=== PATIENT | female | born 1955 | race Caucasian/White ===

== ENCOUNTER → 2020-01-20 | Outpatient (CLI) | payer BC | END | disposition home or self-care (01) | LOC: LABWHC1 14:38 | PROVIDERS: ATTEND Internal Medicine | DX: Z20.828 Contact with and (suspected) exposure to other viral communicable diseases (principal) | CPT/HCPCS: U0003; C9803 ==

== ENCOUNTER → 2020-04-20 | Outpatient (CLI) | payer BC ==
--- NOTE | 2020-04-20 10:01 | XR ---
EXAMINATION TYPE: XR chest 2V DATE OF EXAM: 04/20/2020 COMPARISON: None INDICATION: History of Covid TECHNIQUE: Frontal and lateral views of the chest are obtained. FINDINGS: The heart size is normal. The pulmonary vasculature is normal. The lungs are clear. IMPRESSION: 1. No acute pulmonary process.
== END | disposition home or self-care (01) ==
LOC: RADXRMAIN 09:27
PROVIDERS: ATTEND Internal Medicine
DX: J20.9 Acute bronchitis, unspecified (principal)
CPT/HCPCS: 71046

== ENCOUNTER → 2021-09-15 | Outpatient (CLI) | payer BC ==
--- NOTE | 2021-09-15 07:47 | CTL ---
EXAMINATION TYPE: CT Low Dose Lung DATE OF EXAM ORDERED: 09/15/2021 HISTORY: Lung cancer screening CT DLP: 83.[address] CTDI: 2.4 mGy Automated exposure control for dose reduction was used. SCREENING VISIT: Yes COMPARISON: None TECHNIQUE: Low dose computed tomography scan was performed through the chest at 1 mm thick sections a nd reconstructed images in multiple planes at 1 mm and [address] DIAGNOSTIC QUALITY: Satisfactory FINDINGS: LUNG NODULES: None. LUNGS: COPD: Severity: Mild Fibrosis: Severity: None Lymph nodes: None Other findings: Mild atelectasis changes within the medial aspect of the middle lobe and the lingula. There is streaky atelectasis/scarring within the lung bases RIGHT PLEURAL SPACE: Effusion: None Calcification: None Thickening: None Pneumothorax: None LEFT PLEURAL SPACE: Effusion: None Calcification: None Thickening: None Pneumothorax: None HEART: Heart Size: Normal Coronary Calcification: Minimal Pericardial Effusion: None OTHER FINDINGS: Upper abdomen: None Bony thorax: Multilevel disc degeneration throughout the spine. Supraclavicular region: None Other: None IMPRESSION: No pulmonary nodules. CT LUNG RAD AND CT CHEST RECOMMENDATION: Lung-Rad 1 Negative: Continue annual screening with LDCT in 12 months. S Modifier (other clinically significant findings): None
== END | disposition home or self-care (01) ==
LOC: RADCTMAIN 06:18
PROVIDERS: ATTEND Internal Medicine
DX: Z12.2 Encounter for screening for malignant neoplasm of respiratory organs (principal); Z87.891 Personal history of nicotine dependence
CPT/HCPCS: 71271

== ENCOUNTER 2024-02-13 16:01 | Observation (INO) | payer BC, MEDICARE ==
[2024-02-13] MEDS: SODIUM CHLORIDE 0.9% 1,000 ML IV STA (17:16)
[2024-02-13] MEDS: KETOROLAC 15 MG/ML 1 ML VIAL IVP STA (17:17)
[2024-02-13] MEDS: ONDANSETRON 4 MG/2 ML VIAL IVP STA (17:18)
[2024-02-13 17:20] LABS: Basophils % (A) 0 %; Eosinophils # (A) 0.7 k/uL (0-0.7); Eosinophils % (A) 5 %; HCT 45.1 % (34.0-46.0); HGB 14.7 gm/dL (11.4-16.0); Lymphocytes # (A) 2.3 k/uL (1.0-4.8); Lymphocytes % (A) 18 %; MCH 32.2 pg (25.0-35.0); MCHC 32.7 g/dL (31.0-37.0); MCV 98.5 fL (80.0-100.0); Mean Platelet Volume 7.1; Monocytes # (A) 0.4 k/uL (0-1.0); Monocytes % (A) 3 %; Neutrophils # (A) 9.5 k/uL (1.3-7.7); Neutrophils % (A) 72 %; Platelet Count 316 k/uL (150-450); RBC 4.57 m/uL (3.80-5.40); RDW 12.3 % (11.5-15.5); WBC 13.1 k/uL (3.8-10.6)
[2024-02-13] MEDS: PANTOPRAZOLE 40 MG/10 ML VIAL IVP STA (17:21)
[2024-02-13 17:29] LABS: INR 1.1 (<1.2); Partial Thromboplastin Time 26.4 sec (22.0-30.0)
[2024-02-13 17:31] LABS: ALT 14 U/L (4-34); AST 22 U/L (14-36); African American GFR (CKD) >90 (>60 ml/min/1.73 sqM); Albumin 4.4 g/dL (3.5-5.0); Alkaline Phosphatase 106 U/L (38-126); Amylase 57 U/L (30-110); Anion Gap 12 mmol/L; Blood Urea Nitrogen 14 mg/dL (7-17); Calcium 9.5 mg/dL (8.4-10.2); Carbon Dioxide 16 mmol/L (22-30); Chloride 107 mmol/L (98-107); Glucose 81 mg/dL (74-99); Lipase 35 U/L (23-300); Non-African American GFR(CKD) >90 (>60 ml/min/1.73 sqM); Potassium 4.1 mmol/L (3.5-5.1); Sodium 135 mmol/L (137-145); Total Bilirubin 0.4 mg/dL (0.2-1.3)
--- NOTE | 2024-02-13 18:01 | XR ---
EXAMINATION TYPE: XR chest 2V DATE OF EXAM: 02/13/2024 5:33 PM COMPARISON: Chest radiographs from 04/20/2020 CLINICAL INDICATION: Female, 68 years old with history of n/v.dehydration; TECHNIQUE: XR chest 2V Frontal and lateral views of the chest. FINDINGS: Lungs/Pleura: There is no evidence of pleural effusion, focal consolidation, or pneumothorax. Pulmonary vascularity: Unremarkable. Heart/mediastinum: Cardiomediastinal silhouette is unremarkable. Musculoskeletal: No acute osseous pathology. IMPRESSION: No acute cardiopulmonary disease/process. [facility], , 02/13/2024 5:58 PM
--- NOTE | 2024-02-13 18:17 | CT ---
EXAMINATION TYPE: CT abdomen pelvis w con DATE OF EXAM: 02/13/2024 6:01 PM COMPARISON: None CLINICAL INDICATION: Female, 68 years old with history of abdominal pain, n/v; Abdominal pain, N/V. TECHNIQUE: Axial CT abdomen pelvis w con;Sagittal and coronal reformats were created on a separate w orkstation. Contrast used:100 ml mL of Isovue 300 with IV Contrast, (none if empty) Oral contrast used: without Oral Contrast (none if empty) CT DLP: 975.9 mGycm, Automated exposure control for dose reduction was used. FINDINGS: LOWER CHEST: Unremarkable ABDOMEN LIVER: Unremarkable GALLBLADDER AND BILE DUCTS: Unremarkable. PANCREAS: Unremarkable. SPLEEN: Unremarkable. ADRENAL GLANDS: Unremarkable. KIDNEYS AND URETERS: No evidence of hydronephrosis or renal calculus. The ureters are unremarkable. PELVIS BLADDER: No evidence for wall thickening or mass given limitations of exam. REPRODUCTIVE: The uterus is surgically absent. ABDOMEN & PELVIS STOMACH AND BOWEL: No evidence of bowel obstruction. Scattered colonic diverticula. PERITONEUM/RETROPERITONEUM: No evidence of pneumoperitoneum or free fluid. VASCULATURE: No evidence of aortic aneurysm. MUSCULOSKELETAL: No acute osseous abnormalities LYMPH NODES: No gross evidence for lymphadenopathy. SOFT TISSUE/ABDOMINAL WALL: Fat-containing umbilical hernia. IMPRESSION: 1. No evidence for acute abdominal process. 2. Colonic diverticulosis. [facility], , 02/13/2024 6:14 PM
--- NOTE | 2024-02-13 18:45 | US ---
EXAMINATION TYPE: US gallbladder DATE OF EXAM: 02/13/2024 COMPARISON: XR and CT today CLINICAL INDICATION: Female, 68 years old with history of diarrhea, abd pain; Patient states abd pain and diarrhea, hasn't ate in days TECHNIQUE: Grayscale and color Doppler imaging of the right upper quadrant was performed. FINDINGS: EXAM MEASUREMENTS: Liver Length: 13.2 cm Gallbladder Wall: 0.3 cm CBD: 0.5 cm Right Kidney: 10.3 x 4.6 x 5.4 cm MONORAIL OPERATOR NOTES:Limited due to overlying gas Pancreas: Obscured by bowel gas Liver: wnl Gallbladder: Wall upper limits of normal. ? sludge vs artifact within the gallbladder neck seen in L LD Evidence for sonographic Dillon's sign: no CBD: wnl Right Kidney: wnl IMPRESSION: No evidence for acute process. Possible biliary sludge seen. [facility], , 02/13/2024 6:42 PM
[2024-02-13] MEDS ORDERED: ACETAMINOPHEN TAB 325 MG TAB PO PRN (19:42)
[2024-02-13] MEDS ORDERED: NALOXONE 0.4 MG/ML 1 ML VIAL IV PRN (19:42)
[2024-02-13] MEDS ORDERED: ONDANSETRON 4 MG/2 ML VIAL IVP PRN (19:42)
--- NOTE | 2024-02-13 19:44 | ED ---
General Adult HPI - General Chief complaint: Weakness Stated complaint: abd pain Time Seen by Provider: 02/13/24 16:06 Source: patient, RN notes reviewed, old records reviewed Mode of arrival: wheelchair Limitations: no limitations - History of Present Illness Initial comments: Is a 68-year-old female who presents emergency department after being sent in by her PCP, Dr. Hopson. For dehydration, abdominal pain, nausea and vomiting and diarrhea. Primary complaint is diarrhea that has been ongoing for the last 3 weeks. Intermittent nausea and vomiting. Somewhat generalized abdominal discomfort with it. Unknown cause. Was sent in for further workup including blood work as well as CT imaging. Patient denies fevers, chills, chest pain, shortness of breath. She was in agreement this plan. No vaginal discharge or bleeding. No urinary complaints. - Related Data Home Medications Medication Instructions Recorded Confirmed Albuterol Sulfate [Albuterol 2 puff INHALATION RT-QID PRN 02/13/24 02/13/24 Sulfate Hfa] Multivit-Min/Iron/Folic/Lutein 1 tab PO DAILY 02/13/24 02/13/24 [Centrum Silver Women Tablet] Rosuvastatin Calcium [Crestor] 5 mg PO DAILY 02/13/24 02/13/24 metroNIDAZOLE [Flagyl] 500 mg PO DIRECTED 02/13/24 02/13/24 Allergies Allergy/AdvReac Type Severity Reaction Status Date / Time Penicillins Allergy Rash/Hives Verified 02/13/24 19:09 Review of Systems ROS Statement: Those systems with pertinent positive or pertinent negative responses have been documented in the HPI. Review of Systems: CONST: Denies fever EYES: Denies blurry vision ENT: Denies nasal congestion C/V: Denies Chest pain RESP: Denies shortness of breath GI: Endorses abdominal pain : Denies dysuria SKIN: Denies rash. MSK: Denies joint pain. NEURO: Denies headache ROS Other: All systems not noted in ROS Statement are negative. Past Medical History Past Medical History: Hyperlipidemia History of Any Multi-Drug Resistant Organisms: None Reported Past Surgical History: Hysterectomy Past Psychological History: No Psychological Hx Reported Smoking Status: Current every day smoker Past Alcohol Use History: Occasional Past Drug Use History: None Reported General Exam - General Exam Comments Initial Comments: General: Appears in no acute distress. HEAD: Normal with no signs of head trauma. EYES: PERRLA, EOMI, conjunctiva normal, no discharge. ENT: Hearing grossly intact, normal oropharynx. Dry mucous membranes. RESPIRATORY: Clear breath sounds bilaterally. No wheezes, rales, or rhonchi. C/V: Regular rate and rhythm. S1 and S2 auscultated, no edema, peripheral pulses 2+ and intact throughout ABD: Abdomen soft, nontender, nondistended. No obvious focal tenderness at this time. EXT: Normal range of motion, no obvious deformity SKIN: No rashes or lesions observed on exposed skin. NEURO: Alert and oriented x 4. Limitations: no limitations Course Vital Signs 02/13/24 02/13/24 02/13/24 16:04 17:25 18:48 Temperature 97.8 F Pulse Rate 105 H 81 82 Respiratory 16 18 18 Rate Blood Pressure 165/83 135/71 125/63 O2 Sat by Pulse 98 97 96 Oximetry 02/13/24 02/13/24 02/13/24 20:10 21:28 22:50 Temperature Pulse Rate 80 74 75 Respiratory 11 L 16 17 Rate Blood Pressure 114/61 110/60 126/62 O2 Sat by Pulse 98 94 L 96 Oximetry Medical Decision Making - Medical Decision Making Was pt. sent in by a medical professional or institution (, PA, LIFE SKILLS TEACHER, urgent care, hospital, or residential...) When possible be specific @ -No Did you speak to anyone other than the patient for history (EMS, parent, family, police, friend...)? What history was obtained from this source @ -No Did you review nursing and triage notes (agree or disagree)? Why? @ -I reviewed and agree with nursing and triage notes Were old charts reviewed (outside hosp., previous admission, EMS record, old EKG, old radiological studies, urgent care reports/EKG's, residential records)? Report findings @ -No old charts were reviewed Differential Diagnosis (chest pain, altered mental status, abdominal pain women, abdominal pain men, vaginal bleeding, weakness, fever, dyspnea, syncope, headache, dizziness, GI bleed, back pain, seizure, CVA, palpatations, mental health, musculoskeletal)? @ -Differential Abdominal Pain Women: Appendicitis, Cholecystitis, diverticulosis, ischemic bowel, pancreatitis, he patitis, UTI, gastroenteritis, AAA, incarcerated hernia, bowel obstruction, constipation, inflammatory bowel, hepatitis, peptic ulcer disease, splenic infarction, perforated viscus, vulvitis, ovarian torsion, PID, kidney stone, placenta abruption, this is not meant to be an all-inclusive list EKG interpreted by me (3pts min.). @ -As above X-rays interpreted by me (1pt min.). @ -Chest x-ray reveals no obvious acute cardiopulmonary process CT interpreted by me (1pt min.). @ -CT abdomen pelvis reveals no obvious acute intra-abdominal process. U/S interpreted by me (1pt. min.). @ -Ultrasound gallbladder reveals possible sludge but no other obvious acute findings. What testing was considered but not performed or refused? (CT, X-rays, U/S, labs)? Why? @ -None What meds were considered but not given or refused? Why? @ -None Did you discuss the management of the patient with other professionals (professionals i.e. , PA, LIFE SKILLS TEACHER, lab, RT, psych nurse, social sciences research scientist, automated equipment engineer technician, teacher, command center officer, special education case manager)? Give summary @ -Discussed with Dr. Hopson who after discussion, we are in agreement with initiating antibiotics and he requested IV Rocephin as well as Flagyl. Requested Dr. Oliver consult. Was in agreement plan for admission. Was smoking cessation discussed for >3mins.? @ -No Was critical care preformed (if so, how long)? @ -No Were there social determinants of health that impacted care today? How? (Homelessness, low income, unemployed, alcoholism, drug addiction, tr ansportation, low edu. Level, literacy, decrease access to med. care, long term, rehab)? @ -No Was there de-escalation of care discussed even if they declined (Discuss DNR or withdrawal of care, Hospice)? DNR status @ -No What co-morbidities impacted this encounter? (DM, HTN, Smoking, COPD, CAD, Cancer, CVA, ARF, Chemo, Hep., AIDS, mental health diagnosis, sleep apnea, morbid obesity)? @ -None Was patient admitted / discharged? Hospital course, mention meds given and route, prescriptions, significant lab abnormalities, going to OR and other pertinent info. @ -Patient presents with 3 weeks of diarrhea, abdominal discomfort and poor oral intake. Clinically appears dehydrated. Vital signs are within acceptable limits. Patient be symptomatically treated with IV fluids, Toradol, and Zofran, Protonix. We will obtain abdominal labs as well as CT imaging. Patient was in agreement this plan. EKG shows no signs of acute ischemia. Imaging including gallbladder ultrasound, chest x-ray, CT abdomen pelvis are unremarkable except for maybe some biliary sludge. Laboratory studies are remarkable for mild leukocytosis of 13.1 which is likely reactive. Remainder the workup unremarkable. 3+ ketones in urine. On reevaluation, discussed with the patient and she will be admitted to observation. Discussed with Dr. Hopson who after discussion, we are in agreement with initiating antibiotics and he requested IV Rocephin as well as Flagyl. Requested Dr. Oliver consult. Was in agreement plan for admission. Undiagnosed new problem with uncertain prognosis? @ -No Drug Therapy requiring intensive monitoring for toxicity (Heparin, Nitro, Insulin, Cardizem)? @ -No Were any procedures done? @ -No Diagnosis/symptom? @ -Diarrhea, dehydration, Acute, or Chronic, or Acute on Chronic? @ -Acute Uncomplicated (without systemic symptoms) or Complicated (systemic symptoms)? @ -Complicated Side effects of treatment? @ -No Exacerbation, Progression, or Severe Exacerbation? @ -No Poses a threat to life or bodily function? How? (Chest pain, [place], [place], pneumonia, PE, COPD, DKA, ARF, appy, cholecystitis, CVA, Diverticulitis, Homicidal, Suicidal, threat to staff... and all critical care pts) @ -Yes - Lab Data Result diagrams: 02/13/24 17:07 02/13/24 17:07 Lab Results 02/13/24 02/13/24 02/13/24 Range/Units 17:07 17:07 17:07 WBC 13.1 H (3.8-10.6) k/uL RBC 4.57 (3.80-5.40) m/uL Hgb 14.7 (11.4-16.0) gm/dL Hct 45.1 (34.0-46.0) % MCV 98.5 (80.0-100.0) fL MCH 32.2 (25.0-35.0) pg MCHC 32.7 (31.0-37.0) g/dL RDW 12.3 (11.5-15.5) % Plt Count 316 (150-450) k/uL MPV 7.1 Neutrophils % 72 % Lymphocytes % 18 % Monocytes % 3 % Eosinophils % 5 % Basophils % 0 % Neutrophils # 9.5 H (1.3-7.7) k/uL Lymphocytes # 2.3 (1.0-4.8) k/uL Monocytes # 0.4 (0-1.0) k/uL Eosinophils # 0.7 (0-0.7) k/uL Basophils # 0.0 (0-0.2) k/uL PT 12.0 (10.0-12.5) sec INR 1.1 (<1.2) APTT 26.4 (22.0-30.0) sec Sodium 135 L (137-145) mmol/L Potassium 4.1 (3.5-5.1) mmol/L Chloride 107 (98-107) mmol/L Carbon Dioxide 16 L (22-30) mmol/L Anion Gap 12 mmol/L BUN 14 (7-17) mg/dL Creatinine 0.65 (0.52-1.04) mg/dL Est GFR (CKD-EPI)AfAm >90 (>60 ml/min/1.73 sqM) Est GFR (CKD-EPI)NonAf >90 (>60 ml/min/1.73 sqM) Glucose 81 (74-99) mg/dL Plasma Lactic Acid Jax (0.7-2.0) mmol/L Calcium 9.5 (8.4-10.2) mg/dL Total Bilirubin 0.4 (0.2-1.3) mg/dL AST 22 (14-36) U/L ALT 14 (4-34) U/L Alkaline Phosphatase 106 (38-126) U/L Total Protein 7.0 (6.3-8.2) g/dL Albumin 4.4 (3.5-5.0) g/dL Amylase 57 (30-110) U/L Lipase 35 (23-300) U/L Influenza Type A (PCR) (Not Detectd) Influenza Type B (PCR) (Not Detectd) RSV (PCR) (Not Detectd) SARS-CoV-2 (PCR) (Not Detectd) 02/13/24 02/13/24 Range/Units 17:07 17:25 WBC (3.8-10.6) k/uL RBC (3.80-5.40) m/uL Hgb (11.4-16.0) gm/dL Hct (34.0-46.0) % MCV (80.0-100.0) fL MCH (25.0-35.0) pg MCHC (31.0-37.0) g/dL RDW (11.5-15.5) % Plt Count (150-450) k/uL MPV Neutrophils % % Lymphocytes % % Monocytes % % Eosinophils % % Basophils % % Neutrophils # (1.3-7.7) k/uL Lymphocytes # (1.0-4.8) k/uL Monocytes # (0-1.0) k/uL Eosinophils # (0-0.7) k/uL Basophils # (0-0.2) k/uL PT (10.0-12.5) sec INR (<1.2) APTT (22.0-30.0) sec Sodium (137-145) mmol/L Potassium (3.5-5.1) mmol/L Chloride (98-107) mmol/L Carbon Dioxide (22-30) mmol/L Anion Gap mmol/L BUN (7-17) mg/dL Creatinine (0.52-1.04) mg/dL Est GFR (CKD-EPI)AfAm (>60 ml/min/1.73 sqM) Est GFR (CKD-EPI)NonAf (>60 ml/min/1.73 sqM) Glucose (74-99) mg/dL Plasma Lactic Acid Jax 1.2 (0.7-2.0) mmol/L Calcium (8.4-10.2) mg/dL Total Bilirubin (0.2-1.3) mg/dL AST (14-36) U/L ALT (4-34) U/L Alkaline Phosphatase (38-126) U/L Total Protein (6.3-8.2) g/dL Albumin (3.5-5.0) g/dL Amylase (30-110) U/L Lipase (23-300) U/L Influenza Type A (PCR) Not Detected (Not Detectd) Influenza Type B (PCR) Not Detected (Not Detectd) RSV (PCR) Not Detected (Not Detectd) SARS-CoV-2 (PCR) Not Detected (Not Detectd) - EKG Data -: EKG Interpreted by Ok EKG Comments: 12-lead Electrocardiogram Interpretation Note EKG was reviewed and interpreted by myself. 12-lead ECG performed at 1712 is i nterpreted by me as revealing normal sinus rhythm at a rate of 84 beats per minute. [place] is normal. TX interval is 150 ms, QRS duration is 109 ms, QTc is 423 ms.. There were no ST or T wave abnormalities to suggest myocardial ischemia or injury. R wave progression across the precordium was satisfactory. By my interpretation this EKG is non-diagnostic for acute ischemia. Disposition Clinical Impression: Diarrhea, Dehydration Disposition: ADMITTED IP TO THIS HOSP Condition: Stable Time of Disposition: 19:20
[2024-02-13] MEDS: SODIUM CHLORIDE 0.9% 1,000 ML IV SCH (20:06)
[2024-02-13] MEDS: metroNIDAZOLE-NS PMX 500 MG in SALINE 1 100ML.BAG IVPB SCH (21:19)
[2024-02-13 21:38] LABS: Amorphous Sediment,Urine Rare /hpf; Appearance,Urine Clear (Clear); Bacteria,Urine Moderate /hpf; Bilirubin,Urine Negative (Negative); Blood,Urine Trace (Negative); Color,Urine Colorless; Glucose,Urine (UA) Negative (Negative); Ketones,Urine 3+ (Negative); Leukocyte Esterase,Urine Negative (Negative); Mucus,Urine Occasional /hpf; Nitrite,Urine Negative (Negative); PH, Urine 5.5 (5.0-8.0); Protein,Urine Negative (Negative); RBC,Urine 1 /hpf (0-5); Squamous Epithelial Cell,Urine 1 /hpf (0-4); Urobilinogen,Urine <2.0 mg/dL (<2.0); WBC,Urine 11 /hpf (0-5)
[2024-02-13 21:47] LABS: Specific Gravity,Urine >1.050 (1.001-1.035)
[2024-02-14] MEDS: PANTOPRAZOLE 40 MG/10 ML VIAL IV SCH (09:51)
[2024-02-14 10:57] LABS: BUN/Creat Ratio 16.83 Ratio (12.00-20.00); Basophils # (A) 0.03 X 10*3/uL (0.00-0.10); Basophils % (A) 0.3 %; Blood Urea Nitrogen 10.1 mg/dL (9.0-27.0); Chloride 110 mmol/L (96-109); Eosinophils % (A) 7.4 %; Glucose 163 mg/dL (70-110); HGB 12.1 g/dL (12.0-15.0); Lymphocytes # (A) 2.77 X 10*3/uL (0.90-5.00); Lymphocytes % (A) 29.5 %; MCH 31.3 pg (27.0-32.0); MCHC 31.8 g/dL (32.0-37.0); MCV 98.2 FL (80.0-97.0); Mean Platelet Volume 10.1 FL (9.5-12.2); Monocytes # (A) 0.53 X 10*3/uL (0.20-1.00); Monocytes % (A) 5.6 %; NRBC Per 100 WBC 0 X 10*3/uL (0.00-0.01); Neutrophils # (A) 5.32 X 10*3/uL (1.80-7.70); Neutrophils % (A) 56.7 %; Platelet Count 270 X 10*3/uL (140-440); Potassium 3.8 mmol/L (3.5-5.5); RBC 3.87 X 10*6/uL (4.10-5.20); RDW 12.4 % (11.5-14.5); Sodium 139 mmol/L (135-145)
[2024-02-14 10:58] LABS: ALT 10 U/L (8-44); AST 15 U/L (13-35); Albumin 3.4 g/dL (3.8-4.9); Albumin/Globulin Ratio 1.89 Ratio (1.60-3.17); Alkaline Phosphatase 83 U/L (41-126); Calcium 8.3 mg/dL (8.7-10.3); Carbon Dioxide 20.4 mmol/L (21.6-31.8); Globulin 1.8 g/dL (1.6-3.3); Total Bilirubin 0.2 mg/dL (0.3-1.2); Total Protein 5.2 g/dL (6.2-8.2)
--- NOTE | 2024-02-14 11:08 | P.CONS ---
History of Present Illness - Reason for Consult Consult date: 02/14/24 Diarrhea 3 weeks Requesting physician: Charles Zhang - Chief Complaint Diarrhea, abdominal cramping - History of Present Illness This is a pleasant 68-year-old female who states she started getting abdominal cramps and diarrhea after eating that started about 3 weeks ago. She states that every time she would eat she would start getting abdominal cramping followed by nonbloody diarrhea. This has been going on for the last 3 weeks duration. She states she has not really eaten for the last 5 days secondary to the cramping being so bad. She states no bowel movement in the last 24 hours. Gastroenterology was consulted for the diarrhea. Her last colonoscopy was in January 2021 at [facility] with Dr. Almanza that was normal. She had a CT of the abdomen and pelvis with no acute findings other than some diverticulosis. Gallbladder ultrasound with no acute findings possible biliary sludge. She had a mildly elevated white count of 13 otherwise labs were unremarkable. She was started on IV Flagyl and Rocephin. She denies any abdominal pain at this time, no nausea or vomiting and she is afebrile. Influenza RSV and COVID not detected. Review of Systems REVIEW OF SYSTEMS: CARDIOPULMONARY: No chest pain or shortness of breath. Gastrointestinal: Abdominal pain/cramping after eating. No nausea or vomiting. No hematemesis, coffee-ground emesis. Diarrhea for 3 weeks duration. No rectal bleeding, or melena. GENITOURINARY: No dysuria or hematuria. MUSCULOSKELETAL: Reports normal range of motion. SKIN: No rashes. No jaundice. ENDOCRINE: No chills, fevers. No excessive weight gain or loss. No polydipsia or polyuria. PSYCHIATRIC: Unremarkable. NEUROLOGY: No change in mental status. Denies dizziness, headache. ENT: Vision unremarkable. CONSTITUTIONAL: No recent weight loss. No fever, chills, night sweats. Past Medical History Past Medical History: Hyperlipidemia History of Any Multi-Drug Resistant Organisms: None Reported Past Surgical History: Hysterectomy Past Psychological History: No Psychological Hx Reported Smoking Status: Current every day smoker Past Alcohol Use History: Occasional Past Drug Use History: None Reported Medications and Allergies Home Medications Medication Instructions Recorded Confirmed Type Albuterol Sulfate [Albuterol 2 puff INHALATION RT-QID PRN 02/13/24 02/13/24 History Sulfate Hfa] Multivit-Min/Iron/Folic/Lutein 1 tab PO DAILY 02/13/24 02/13/24 History [Centrum Silver Women Tablet] Rosuvastatin Calcium [Crestor] 5 mg PO DAILY 02/13/24 02/13/24 History metroNIDAZOLE [Flagyl] 500 mg PO DIRECTED 02/13/24 02/13/24 History Allergies Allergy/AdvReac Type Severity Reaction Status Date / Time Penicillins Allergy Rash/Hives Verified 02/13/24 19:09 Physical Exam Vitals: Vital Signs Temp Pulse Resp BP Pulse Ox 02/14/24 06:34 97.6 F 66 16 105/62 94 L 02/14/24 05:38 73 16 96/50 96 02/14/24 03:17 70 16 106/58 94 L 02/14/24 00:25 14 02/13/24 22:50 75 17 126/62 96 02/13/24 21:28 74 16 110/60 94 L 02/13/24 20:10 80 11 L 114/61 98 02/13/24 18:48 82 18 125/63 96 02/13/24 17:25 81 18 135/71 97 02/13/24 16:04 97.8 F 105 H 16 165/83 98 Intake and Output 02/13/24 02/14/24 02/14/24 22:59 06:59 14:59 Other: Weight 82.1 kg General appearance: The patient is alert, oriented, appears in no acute distress. HET: Head is normocephalic and atraumatic. Conjunctiva pink. Sclera anicteric. Neck: Supple without lymphadenopathy. Trachea midline. Heart: Regular. Lungs: Equal expansion, normal respiratory effort. Abdomen: Soft, nontender, nondistended. Skin: No rashes. No jaundice. Extremities: Normal skin color and turgor. No pedal edema. Neurological: No focal deficits. Alert and oriented x3. Results CBC & Chem 7: 02/13/24 17:07 02/13/24 17:07 Labs: Abnormal Lab Results - Last 24 Hours (Table) 02/13/24 02/13/24 02/13/24 Range/Units 17:07 17:07 21:25 WBC 13.1 H (3.8-10.6) k/uL Neutrophils # 9.5 H (1.3-7.7) k/uL Sodium 135 L (137-145) mmol/L Carbon Dioxide 16 L (22-30) mmol/L Ur Specific [place] >1.050 H (1.001-1.035) Urine Ketones 3+ H (Negative) Urine Blood Trace H (Negative) Urine WBC 11 H (0-5) /hpf Amorphous Sediment Rare H (None) /hpf Urine Bacteria Moderate H (None) /hpf Urine Mucus Occasional H (None) /hpf Comments: CT abdomen pelvis with contrast reports no evidence for acute abdominal process. Colonic diverticulosis. Gallbladder ultrasound reports no evidence for acute process. Possible biliary sludge seen. Assessment and Plan (1) Diarrhea Narrative/Plan: 68-year-old female with complaints of abdominal cramping and diarrhea following eating for the last 3 weeks duration. No recent antibiotics, no recent travel. No nausea or vomiting associated at this time. Imaging with no acute findings, gallbladder ultrasound reported possible sludge. She has been afebrile. Mild leukocytosis. Empirically started on IV Flagyl and Rocephin per medical team. Unclear etiology of diarrhea had a normal colonoscopy 3 years ago. Likely infectious/viral. Will obtain stool cultures as well as C. difficile. Current Visit: Yes Status: Acute Code(s): R19.7 - DIARRHEA, UNSPECIFIED SNOMED Code(s): 95853586 (2) Dehydration Current Visit: Yes Status: Acute Code(s): E86.0 - DEHYDRATION SNOMED Code(s): 04336234 Plan: 1. Continue symptomatic and supportive care 2. Patient may have low-fat diet 3. Please collect stool for C. difficile and stool culture 4. Colonoscopy 3 years ago which was normal. No plans on colonoscopy at this time. Thank you for allowing us to participate in the care of the patient, the GI service will sign off, gastroenterology will not be available at the hospital this weekend. If diarrhea continues patient can follow-up as an outpatient with gastroenterology. GI services will return on Saturday. Dr. Juan Oliver I agree with the dictator's note, documented as a scribe by Shirin Scanlon.
[2024-02-14] MEDS ORDERED: ALBUTEROL NEBULIZED 2.5 MG/3 ML INHALATION PRN (14:43)
--- NOTE | 2024-02-14 14:43 | P.HPIM ---
History of Present Illness H&P Date: 02/14/24 Chief Complaint: Abdominal pain/diarrhea HISTORY OF PRESENT ILLNESS: This is a 68-year-old female with a previous medical history significant for mixed hyperlipidemia, chronic obstructive pulmonary disease, overweight, patient presented to the office yesterday with increased abdominal pain cramps not able to tolerate her meal at all, anything she eats or drink it passes through her within 3 hours, she has not been able to eat anything, she is feeling dizzy lightheaded, she was a bit hypotensive, she was not feeling well, patient was seen and evaluated in the office and she has abdominal tenderness, she is having severe diarrhea, she was sent to the ER for evaluation had a CT scan of the abdomen pelvis that showed no evidence of acute abnormalities, she a lso did have ultrasound of the gallbladder that was negative at the same time, but because of the presentation she was a bit acidotic with a bicarb of 16, she was started on IV fluid resuscitation because the patient is dehydrated, and she was admitted to the hospital for evaluation by gastroenterology, stool will be sent for culture and sensitivity as well as an ova and parasite, along with a C. difficile toxins A and B, patient was started on ceftriaxone 1 g of piggyback every 24 hours as well as metronidazole 500 mg of piggyback every 8 hours, awaiting the final result of the culture she will be kept in the hospital for another 24 hours. REVIEW OF SYSTEMS: Constitutional: No documented fever, no chills, no night sweats. No weight change. No weakness, fatigue or lethargy. No daytime sleepiness. EENT: No headache. No blurred vision or double vision, no loss of vision. No loss of Hearing, no ringing in the ears, no dizziness. No nasal drainage or congestion. No epistaxis. No sore throat. Lungs: No shortness of breath, no cough, no sputum production. No wheezing. Reports dyspnea with activity. Cardiovascular: No chest pain, no lower extremity edema. No palpitations. No paroxysmal nocturnal dyspnea. No orthopnea. No lightheadedness or dizziness. No syncopal episodes. Abdominal: Reports abdominal pain. positive for nausea,no vomiting. positive for diarrhea. No constipation. No bloody or tarry stools reports loss of appetite. Genitourinary: No dysuria, increased frequency, urgency. No urinary retention. Musculoskeletal: No myalgias. No muscle weakness, no gait dysfunction, no frequent falls. No back pain. No neck pain. Integumentary: No wounds, no lesions. No rash or pruritus. No unusual bruising. No change in hair or nails. Neurologic: No aphasia. No facial droop. No change in mentation. No head injury. No headache. No paralysis. No paresthesia. Psychiatric: No depression. positive for anxiety. No mood swings. Endocrine: No abnormal blood sugars. No weight change. PAST MEDICAL HISTORY: Mixed hyperlipidemia. COPD. Overweight. PAST SURGICAL HISTORY: Partial hysterectomy. Colonoscopy 2022. SOCIAL HISTORY: Patient smokes about a pack every day since she was 15-year-old, she continues to smoke, despite multiple attempts for quitting, she is not ready to quit at this point in time, she denies any alcohol ingestion, no drug use or abuse, she lives with her . FAMILY HISTORY: Father at the age of 91 from some sort of cancer she could not remember what and had history of hypertension, mother is 87-year-old with hypertension, and had breast cancer at the age of 60 postchemotherapy, she has had a stroke January 2024, patient has 1 sister 64-year-old with history of lumbar degenerative disc disease, patient has 2 sons alive and well, patient had 1 daughter who at age of 43 from liver cirrhosis, maternal grandmother from breast cancer, her sister has CAD post [place] this year. PHYSICAL EXAMINATION: General: 68-year-old female who is laying down in bed in no apparent distress. HEENT: Head is atraumatic, normocephalic, pupils were equal round reactive to light and recommendation, extraocular muscle movement were intact, sclera nonicteric, conjunctivae were pale, mucous membranes of the mouth are somewhat dry. Neck: Supple, no JVP, normal carotid upstroke bilaterally, no lymphadenopathy. Chest: Decreased breath sounds at the bases, few rhonchi, no expiratory wheezes, no chest wall tenderness, no intercostal retractions. Heart: First heart sound is normal, second heart sounds normal there is no gallop or murmur. Abdomen: Soft, mild tenderness of the left lower quadrant, nondistended, positive bowel sounds, no hepatosplenomegaly. Extremities: There is no edema no calf tenderness DP +2 bilaterally. Neurologic examination: Patient is awake alert and oriented x3, cranial nerves II-12 appear grossly intact, muscle power were 5 out of 5 in upper extremities and 5 out of 5 in bilateral lower extremities, deep tendon reflexes normal bilaterally. ASSESSMENT AND PLAN: 1. Abdominal pain associated with diarrhea for the past 3 weeks patient has no exposure to recent antibiotic, she has no sick contact, rule out irritable bowel disease with diarrhea, rule out microscopic versus collagenous colitis, check stool for C. difficile toxins A and B, check stool cultures with WBC in the stool, continue patient on ceftriaxone 1 g piggyback every 24 hours, continue metronidazole 500 mg orally 3 times every day, GI consultation appreciated, continue low-fat diet, avoid daily products, follow-up with the patient very closely. 2. None anion gap metabolic acidosis likely related to chronic diarrhea for the past 3 weeks, continue IV fluid resuscitation, repeat the patient CMP in the next 24 hours. 3. leukocytosis likely related to diarrheal illness likely infectious etiology rule out collagenous/microscopic colitis. Continue IV antibiotic, recheck the patient CBC in the next 24 hours. 4. Mixed hyperlipidemia. Continue patient on rosuvastatin 5 mg once every day, monitor lipid panel, keep LDL 55-70. 5. History of COPD. Continue patient on albuterol 2 2 puffs inhalation every 4 hours as needed. Smoking cessation and counseling. 6. Chronic tobacco use and dependence. Start the patient on nicotine patch 21 mg once every day. 7. DVT prophylaxis. Lovenox 40 mg subcutaneous every 24 hours. 8. GI prophylaxis. Continue Protonix 40 mg once every day. 9. Observation. 10. Full code. Past Medical History Past Medical History: Hyperlipidemia History of Any Multi-Drug Resistant Organisms: None Reported Past Surgical History: Hysterectomy Past Psychological History: No Psychological Hx Reported Smoking Status: Current every day smoker Past Alcohol Use History: Occasional Past Drug Use History: None Reported Medications and Allergies Home Medications Medication Instructions Recorded Confirmed Type Albuterol Sulfate [Albuterol 2 puff INHALATION RT-QID PRN 02/13/24 02/13/24 History Sulfate Hfa] Multivit-Min/Iron/Folic/Lutein 1 tab PO DAILY 02/13/24 02/13/24 History [Centrum Silver Women Tablet] Rosuvastatin Calcium [Crestor] 5 mg PO DAILY 02/13/24 02/13/24 History metroNIDAZOLE [Flagyl] 500 mg PO DIRECTED 02/13/24 02/13/24 History Allergies Allergy/AdvReac Type Severity Reaction Status Date / Time Penicillins Allergy Rash/Hives Verified 02/13/24 19:09 Physical Exam Vitals: Vital Signs Temp Pulse Resp BP Pulse Ox 02/14/24 09:44 78 17 92/57 97 02/14/24 06:34 97.6 F 66 16 105/62 94 L 02/14/24 05:38 73 16 96/50 96 02/14/24 03:17 70 16 106/58 94 L 02/14/24 00:25 14 02/13/24 22:50 75 17 126/62 96 02/13/24 21:28 74 16 110/60 94 L 02/13/24 20:10 80 11 L 114/61 98 02/13/24 18:48 82 18 125/63 96 02/13/24 17:25 81 18 135/71 97 02/13/24 16:04 97.8 F 105 H 16 165/83 98 Intake and Output 02/13/24 02/14/24 02/14/24 22:59 06:59 14:59 Other: Weight 82.1 kg Results CBC & Chem 7: 02/14/24 05:58 02/14/24 05:58 Labs: Abnormal Lab Results - Last 24 Hours (Table) 02/13/24 02/13/24 02/13/24 Range/Units 17:07 17:07 21:25 WBC 13.1 H (3.8-10.6) k/uL RBC (4.10-5.20) X 10*6/uL MCV (80.0-97.0) FL MCHC (32.0-37.0) g/dL Immature Gran # (0.00-0.04) X 10*3/uL Neutrophils # 9.5 H (1.3-7.7) k/uL Eosinophils # (0.04-0.35) X 10*3/uL Sodium 135 L (137-145) mmol/L Chloride (96-109) mmol/L Carbon Dioxide 16 L (22-30) mmol/L Glucose (70-110) mg/dL Calcium (8.7-10.3) mg/dL Total Bilirubin (0.3-1.2) mg/dL Total Protein (6.2-8.2) g/dL Albumin (3.8-4.9) g/dL Ur Specific [place] >1.050 H (1.001-1.035) Urine Ketones 3+ H (Negative) Urine Blood Trace H (Negative) Urine WBC 11 H (0-5) /hpf Amorphous Sediment Rare H (None) /hpf Urine Bacteria Moderate H (None) /hpf Urine Mucus Occasional H (None) /hpf 02/14/24 02/14/24 Range/Units 05:58 05:58 WBC (3.8-10.6) k/uL RBC 3.87 L (4.10-5.20) X 10*6/uL MCV 98.2 H (80.0-97.0) FL MCHC 31.8 L (32.0-37.0) g/dL Immature Gran # 0.05 H (0.00-0.04) X 10*3/uL Neutrophils # (1.3-7.7) k/uL Eosinophils # 0.70 H (0.04-0.35) X 10*3/uL Sodium (137-145) mmol/L Chloride 110 H (96-109) mmol/L Carbon Dioxide 20.4 L (22-30) mmol/L Glucose 163 H (70-110) mg/dL Calcium 8.3 L (8.7-10.3) mg/dL Total Bilirubin 0.2 L (0.3-1.2) mg/dL Total Protein 5.2 L (6.2-8.2) g/dL Albumin 3.4 L (3.8-4.9) g/dL Ur Specific [place] (1.001-1.035) Urine Ketones (Negative) Urine Blood (Negative) Urine WBC (0-5) /hpf Amorphous Sediment (None) /hpf Urine Bacteria (None) /hpf Urine Mucus (None) /hpf
[2024-02-14] MEDS: KETOROLAC 15 MG/ML 1 ML VIAL IVP PRN (22:40)
[2024-02-15 02:49] VITALS: RESP 16
[2024-02-15] MEDS: ENOXAPARIN 40 MG/0.4 ML SYRINGE SQ SCH (08:23)
[2024-02-15] MEDS: ATORVASTATIN 10 MG TAB PO SCH (08:23)
[2024-02-15] MEDS: MULTIVITAMINS, THERA 1 EACH TAB PO SCH (08:23)
[2024-02-15] MEDS: NICOTINE 21MG/24HR PATCH TRANSDERM SCH (08:23)
[2024-02-15 08:35] VITALS: BP 129/82; PULSE 61; TEMP 97.5
--- NOTE | 2024-02-15 08:57 | P.PN ---
Subjective Progress Note Date: 02/15/24 HISTORY OF PRESENT ILLNESS: This is a 68-year-old female with a previous medical history signif icant for mixed hyperlipidemia, chronic obstructive pulmonary disease, overweight, patient presented to the office yesterday with increased abdominal pain cramps not able to tolerate her meal at all, anything she eats or drink it passes through her within 3 hours, she has not been able to eat anything, she is feeling dizzy lightheaded, she was a bit hypotensive, she was not feeling well, patient was seen and evaluated in the office and she has abdominal tenderness, she is having severe diarrhea, she was sent to the ER for evaluation had a CT scan of the abdomen pelvis that showed no evidence of acute abnormalities, she also did have ultrasound of the gallbladder that was negative at the same time, but because of the presentation she was a bit acidotic with a bicarb of 16, she was started on IV fluid resuscitation because the patient is dehydrated, and she was admitted to the hospital for evaluation by gastroenterology, stool will be sent for culture and sensitivity as well as an ova and parasite, along with a C. difficile toxins A and B, patient was started on ceftriaxone 1 g of piggyback every 24 hours as well as metronidazole 500 mg of piggyback every 8 hours, awaiting the final result of the culture she will be kept in the hospital for another 24 hours. 02/14: Patient is feeling a lot better today, she denies any chest pain, shortness of breath, she has no abdominal pain, nausea vomiting she continues to have minimal diarrhea, her stool was sent for culture and C. difficile, results are pending at time of dictation, she has been started on metronidazole as well as ceftriaxone, was seen earlier by gastroenterology who recommended conservative management for now patient did have a colonoscopy not too long ago and that was negative. I will follow-up with the patient very closely if she does well this afternoon she can be discharged home and follow-up with us as an outpatient. REVIEW OF SYSTEMS: Constitutional: No documented fever, no chills, no night sweats. No weight change. No weakness, fatigue or lethargy. No daytime sleepiness. EENT: No headache. No blurred vision or double vision, no loss of vision. No loss of Hearing, no ringing in the ears, no dizziness. No nasal drainage or congestion. No epistaxis. No sore throat. Lungs: No shortness of breath, no cough, no sputum production. No wheezing. Reports dyspnea with activity. Cardiovascular: No chest pain, no lower extremity edema. No palpitations. No paroxysmal nocturnal dyspnea. No orthopnea. No lightheadedness or dizziness. No syncopal episodes. Abdominal: Reports abdominal pain. positive for nausea,no vomiting. positive for diarrhea. No constipation. No bloody or tarry stools reports loss of appetite. Genitourinary: No dysuria, increased frequency, urgency. No urinary retention. Musculoskeletal: No myalgias. No muscle weakness, no gait dysfunction, no frequent falls. No back pain. No neck pain. Integumentary: No wounds, no lesions. No rash or pruritus. No unusual bruising. No change in hair or nails. Neurologic: No aphasia. No facial droop. No change in mentation. No head injury. No headache. No paralysis. No paresthesia. Psychiatric: No depression. positive for anxiety. No mood swings. Endocrine: No abnormal blood sugars. No weight change. PHYSICAL EXAMINATION: General: 68-year-old female who is laying down in bed in no apparent distress. HEENT: Head is atraumatic, normocephalic, pupils were equal round reactive to light and recommendation, extraocular muscle movement were intact, sclera nonicteric, conjunctivae were pale, mucous membranes of the mouth are somewhat dry. Neck: Supple, no JVP, normal carotid upstroke bilaterally, no lymphadenopathy. Chest: Decreased breath sounds at the bases, few rhonchi, no expiratory wheezes, no chest wall tenderness, no intercostal retractions. Heart: First heart sound is normal, second heart sounds normal there is no gallop or murmur. Abdomen: Soft, mild tenderness of the left lower quadrant, nondistended, positive bowel sounds, no hepatosplenomegaly. Extremities: There is no edema no calf tenderness DP +2 bilaterally. Neurologic examination: Patient is awake alert and oriented x3, cranial nerves II-12 appear grossly intact, muscle power were 5 out of 5 in upper extremities and 5 out of 5 in bilateral lower extremities, deep tendon reflexes normal bilaterally. ASSESSMENT AND PLAN: 1. Abdominal pain associated with diarrhea for the past 3 weeks patient has no exposure to recent antibiotic, she has no sick contact, rule out irritable bowel disease with diarrhea, rule out microscopic versus collagenous colitis, check stool for C. difficile toxins A and B, check stool cultures with WBC in the stool, continue patient on ceftriaxone 1 g piggyback every 24 hours, continue metronidazole 500 mg orally 3 times every day, GI consultation appreciated, continue low-fat diet, avoid daily products, follow-up with the patient very closely. 2. None anion gap metabolic acidosis likely related to chronic diarrhea for the past 3 weeks, continue IV fluid resuscitation, repeat the patient CMP in the next 24 hours. 3. leukocytosis likely related to diarrheal illness likely infectious etiology rule out collagenous/microscopic colitis. Continue IV antibiotic, recheck the patient CBC in the next 24 hours. 4. Mixed hyperlipidemia. Continue patient on rosuvastatin 5 mg once every day, monitor lipid panel, keep LDL 55-70. 5. History of COPD. Continue patient on albuterol 2 2 puffs inhalation every 4 hours as needed. Smoking cessation and counseling. 6. Chronic tobacco use and dependence. Start the patient on nicotine patch 21 mg once every day. 7. DVT prophylaxis. Lovenox 40 mg subcutaneous every 24 hours. 8. GI prophylaxis. Continue Protonix 40 mg once every day. 9. Likely home this afternoon. Objective - Vital Signs Vital signs: Vital Signs Temp 97.7 F 02/15/24 02:00 Pulse 68 02/15/24 02:00 Resp 16 02/15/24 02:00 BP 104/64 02/15/24 02:00 Pulse Ox 95 02/15/24 02:00 FiO2 Intake & Output 02/14/24 02/15/24 02/15/24 18:59 06:59 18:59 Weight 82.1 kg Other: Voiding Method Toilet # Voids 3 - Labs CBC & Chem 7: 02/14/24 05:58 02/14/24 05:58 Labs: Abnormal Lab Results - Last 24 Hours (Table) 02/14/24 02/14/24 Range/Units 05:58 05:58 RBC 3.87 L (4.10-5.20) X 10*6/uL MCV 98.2 H (80.0-97.0) FL MCHC 31.8 L (32.0-37.0) g/dL Immature Gran # 0.05 H (0.00-0.04) X 10*3/uL Eosinophils # 0.70 H (0.04-0.35) X 10*3/uL Chloride 110 H (96-109) mmol/L Carbon Dioxide 20.4 L (21.6-31.8) mmol/L Glucose 163 H (70-110) mg/dL Calcium 8.3 L (8.7-10.3) mg/dL Total Bilirubin 0.2 L (0.3-1.2) mg/dL Total Protein 5.2 L (6.2-8.2) g/dL Albumin 3.4 L (3.8-4.9) g/dL Microbiology - Last 24 Hours (Table) 02/13/24 20:00 Blood Culture - Preliminary Blood
[2024-02-15] MEDS: metroNIDAZOLE 500 MG TAB PO SCH (09:13)
[2024-02-15 09:46] LABS: Blood Urea Nitrogen 12.6 mg/dL (9.0-27.0); Carbon Dioxide 23.5 mmol/L (21.6-31.8); Chloride 109 mmol/L (96-109); Glucose 66 mg/dL (70-110); Potassium 4.2 mmol/L (3.5-5.5); Sodium 143 mmol/L (135-145)
[2024-02-15 09:47] LABS: ALT 16 U/L (8-44); AST 25 U/L (13-35); Albumin/Globulin Ratio 1.74 Ratio (1.60-3.17); Alkaline Phosphatase 105 U/L (41-126); Globulin 2.3 g/dL (1.6-3.3); Total Bilirubin <0.2 mg/dL (0.3-1.2); Total Protein 6.3 g/dL (6.2-8.2)
[2024-02-15 10:18] LABS: Glucose,Whole Blood 240 mg/dL (70-110)
[2024-02-15 11:19] LABS: Basophils # (A) 0.06 X 10*3/uL (0.00-0.10); Basophils % (A) 0.6 %; Eosinophils # (A) 0.95 X 10*3/uL (0.04-0.35); Eosinophils % (A) 9.8 %; HCT 42.3 % (37.2-46.3); HGB 13.2 g/dL (12.0-15.0); Lymphocytes # (A) 2.94 X 10*3/uL (0.90-5.00); Lymphocytes % (A) 30.5 %; MCH 30.8 pg (27.0-32.0); MCHC 31.2 g/dL (32.0-37.0); MCV 98.8 FL (80.0-97.0); Monocytes # (A) 0.59 X 10*3/uL (0.20-1.00); Monocytes % (A) 6.1 %; NRBC Per 100 WBC 0 X 10*3/uL (0.00-0.01); Neutrophils # (A) 5.08 X 10*3/uL (1.80-7.70); Neutrophils % (A) 52.7 %; Platelet Count 347 X 10*3/uL (140-440); RBC 4.28 X 10*6/uL (4.10-5.20); RDW 12.5 % (11.5-14.5); WBC 9.65 X 10*3/uL (4.50-10.00)
[2024-02-15 11:39] LABS: Glucose,Whole Blood 206 mg/dL (70-110)
--- NOTE | 2024-02-15 14:29 | P.DS ---
Providers Date of admission: 02/13/24 19:43 Expected date of discharge: 02/15/24 Attending physician: Tita Hopson Consults: 02/13/24 19:41 Consult Physician Routine Consulting Provider: Angela Oliver Consult Reason/Comments: diarrhea 3 weeks Do you want consulting provider notified?: Yes Primary care physician: Tita Hopson Hospital Course: HISTORY OF PRESENT ILLNESS: This is a 68-year-old female with a previous medical history significant for mixed hyperlipidemia, chronic obstructive pulmonary disease, overweight, patient presented to the office yesterday with increased abdominal pain cramps not able to tolerate her meal at all, anything she eats or drink it passes through her within 3 hours, she has not been able to eat anything, she is feeling dizzy lightheaded, she was a bit hypotensive, she was not feeling well, patient was seen and evaluated in the office and she has abdominal tenderness, she is having severe diarrhea, she was sent to the ER for evaluation had a CT scan of the abdomen pelvis that showed no evidence of acute abnormalities, she also did have ultrasound of the gallbladder that was negative at the same time, but because of the presentation she was a bit acidotic with a bicarb of 16, she was started on IV fluid resuscitation because the patient is dehydrated, and she was admitted to the hospital for evaluation by gastroenterology, stool will be sent for culture and sensitivity as well as an ova and parasite, along with a C. difficile toxins A and B, patient was started on ceftriaxone 1 g of piggyback every 24 hours as well as metronidazole 500 mg of piggyback every 8 hours, awaiting the final result of the culture she will be kept in the hospital for another 24 hours. 02/14: Patient is feeling a lot better today, she denies any chest pain, shortness of breath, she has no abdominal pain, nausea vomiting she continues to have minimal diarrhea, her stool was sent for culture and C. difficile, results are pending at time of dictation, she has been started on metronidazole as well as ceftriaxone, was seen earlier by gastroenterology who recommended conservative management for now patient did have a colonoscopy not too long ago and that was negative. I will follow-up with the patient very closely if she does well this afternoon she can be discharged home and follow-up with us as an outpatient. Discharge diagnoses: 1. Abdominal pain associated with diarrhea for the past 3 weeks patient has no exposure to recent antibiotic, she has no sick contact, rule out irritable bowel disease with diarrhea, rule out microscopic versus collagenous colitis, 2. None anion gap metabolic acidosis likely related to chronic diarrhea for the past 3 weeks 3. leukocytosis likely related to diarrheal illness likely infectious etiology rule out collagenous/microscopic colitis. 4. Mixed hyperlipidemia. 5. History of COPD. 6. Chronic tobacco use and dependence. Patient Condition at Discharge: Stable Plan - Discharge Summary Discharge Rx Participant: No New Discharge Prescriptions: No Action metroNIDAZOLE [Flagyl] 500 mg PO DIRECTED Multivit-Min/Iron/Folic/Lutein [Centrum Silver Women Tablet] 1 tab PO DAILY Rosuvastatin Calcium [Crestor] 5 mg PO DAILY Albuterol Sulfate [Albuterol Sulfate Hfa] 2 puff INHALATION RT-QID PRN PRN Reason: Shortness Of Breath Discharge Medication List Albuterol Sulfate [Albuterol Sulfate Hfa] 2 puff INHALATION RT-QID PRN 02/13/24 [History] Multivit-Min/Iron/Folic/Lutein [Centrum Silver Women Tablet] 1 tab PO DAILY 02/13/24 [History] Rosuvastatin Calcium [Crestor] 5 mg PO DAILY 02/13/24 [History] metroNIDAZOLE [Flagyl] 500 mg PO DIRECTED 02/13/24 [History] Follow up Appointment(s)/Referral(s): Tita Hopson MD [Primary Care Provider] - 1-2 days
[2024-02-16] MEDS ORDERED: PANTOPRAZOLE 40 MG TABLET PO SCH (07:30)
== END 2024-02-15 14:54 | disposition home or self-care (01) ==
LOC: EC 16:01 → 6NMEDSUR 19:43
PROVIDERS: ADMIT Internal Medicine; ATTEND Internal Medicine
DX: R10.9 Unspecified abdominal pain (principal); R19.7 Diarrhea, unspecified; E86.0 Dehydration; E87.20 Acidosis, unspecified; D72.829 Elevated white blood cell count, unspecified; E78.2 Mixed hyperlipidemia; J44.9 Chronic obstructive pulmonary disease, unspecified; F17.210 Nicotine dependence, cigarettes, uncomplicated; E66.3 Overweight; K57.30 Diverticulosis of large intestine without perforation or abscess without bleeding; Z88.0 Allergy status to penicillin; Z79.899 Other long term (current) drug therapy
CPT/HCPCS: 96376 ×3; 96366 ×3; 96372; 96361 ×2; 96365; 96367; 96375; 99285; 36415; 93005; 80053 ×3; 82150; 83605; 83690; 85025 ×3; 85610; 85730; 81001; 87040; 87324; 87045; 87046; 87636; 71046; 76705; 74177; G0378 ×3; S4990; J2405; J0696 ×3; J1650; J1885 ×2; Q9967; J1836 ×3; J2470 ×3

== ENCOUNTER → 2024-09-30 | Outpatient (CLI) | payer MEDICARE ==
[~2024-09-30] MED LIST: DOBUTamine DRIP for NUC MED 500 MG in DEXTROSE/WATER 1 250ML.BAG IV PRN; DOBUTamine DRIP for NUC MED 500 MG/250 ML BAG IV ONE
--- NOTE | 2024-09-30 13:02 | CA ---
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 ICD-9 Codes: Rhythm: Patient History: HYPERCHOLESTEROLEMIA, FAMILY HX OF HEART DISEASE, CURRENT SMOKER 1 PPD X 30 YEARS Cardiac Medications: Medications in past 24 hours: Contrast: Definity Total Dose (mL): Stress Results Protocol: Dobutamine Peak Dose (???g/kg/min): 30 Duration (min:sec): Atropine:(mg) Target HR: 128 Double Product: Resting HR: 69 Resting BP: 121 / 65 Peak HR: 131 Peak BP: 153 / 58 Max Predicted HR: 151 87 % Max Predicted HR Stress Summary: BP Response: Reason for Termination: TARGET HR Cardiac Symptoms: NO SYMPTOMS ECG Analysis Resting EKG: Normal sinus rhythm, normal ECG Stress EKG: No abnormal ST/T wave changes with exercise Arrhythmia: None Echo Analysis Base Echo Analysis: Normal resting echocardiogram. Low Echo Anaylsis: Normal wall thickening and motion Peak Echo Analysis: Normal wall motion augmentation with no hypokinesis or dyskinesis with decrease in the cavity size Recovery Echo: Normal wall motion MEASUREMENTS (Male/Female) Normal Values CONCLUSIONS Normal response to Dobutamine. No echocardiographic evidence of myocardial ischemia. Normal Dobutamine stress echocardiogram. Dr. Michelle Dao MD (Electronically Signed) Final Date: 30 September 2024 13:01
== END | disposition home or self-care (01) ==
LOC: RADNMMAIN 09:36
PROVIDERS: ATTEND Internal Medicine
DX: I25.10 Atherosclerotic heart disease of native coronary artery without angina pectoris (principal); E78.00 Pure hypercholesterolemia, unspecified; F17.200 Nicotine dependence, unspecified, uncomplicated
CPT/HCPCS: 93351; Q9957